=== PATIENT | female | born 1995 | race Caucasian/White ===

== ENCOUNTER 2018-12-17 16:52 | Emergency (ER) | payer BC ==
--- NOTE | 2018-12-17 17:30 | RAD ---
Radiograph right hand 3 views: HISTORY: 23-year-old female status post right hand trauma FINDINGS: No fracture identified. No dislocation. No radiopaque foreign body. IMPRESSION: Negative
== END 2018-12-17 17:35 | disposition home or self-care (01) ==
LOC: MADERS 16:52
DX: S63.601A Unspecified sprain of right thumb, initial encounter (principal); W23.0XXA Caught, crushed, jammed, or pinched between moving objects, initial encounter; Y93.68 Activity, volleyball (beach) (court)